=== PATIENT | female | born 1975 | race Caucasian/White ===

== ENCOUNTER 2019-02-06 05:51 | Inpatient (IN) | payer OTHER ==
[2019-02-06] MEDS ORDERED: CARBOPROST 250 MCG INJ IM ×2 (07:00→17:00)
[2019-02-06] MEDS ORDERED: METHYLERGONOVINE 0.2 MG INJ IM ×2 (07:00→17:00)
[2019-02-06] MEDS ORDERED: MISOPROSTOL 200 MCG TAB PR ×2 (07:00→17:00)
[2019-02-06] MEDS ORDERED: BUTORPHANOL 2 MG INJ IV (07:00)
[2019-02-06] MEDS ORDERED: IBUPROFEN 600 MG TAB PO (07:00)
[2019-02-06] MEDS ORDERED: LIDOCAINE 1% (MPF) 30 ML INJ INJ (07:00)
[2019-02-06] MEDS ORDERED: OXYTOCIN 30 UNITS/LR 500 ML IV ×4 (07:00→17:00)
[2019-02-06] MEDS: LACTATED RINGER'S 1,000 ML IV ×3 (07:30→09:51)
[2019-02-06] MEDS ORDERED: CLINDAMYCIN 900 MG (PMX) 50 ML IVPB ×2 (07:56→12:00)
[2019-02-06] MEDS: CLINDAMYCIN 900 MG (PMX) 50 ML IVPB (08:20)
[2019-02-06] MEDS ORDERED: FENTAnyl 2MCG/ML-ROPIV 0.2% 100 ML (08:58)
[2019-02-06] MEDS ORDERED: FENTAnyl 2MCG/ML-ROPIV 0.2% 100 ML BAG EPI (09:30)
[2019-02-06] MEDS ORDERED: NALOXONE (0.4 MG/ML) INJ IV ×2 (09:30→13:00)
[2019-02-06] MEDS ORDERED: TERBUTALINE 1 ML (11:49)
[2019-02-06] MEDS ORDERED: CEFAZOLIN 2 GM/50 ML (PMX) 50 ML IVPB (11:51)
[2019-02-06] MEDS ORDERED: ROPIVACAINE 0.5 % 30 ML VIAL (12:20)
[2019-02-06] MEDS ORDERED: OXYTOCIN 10 UNIT INJ (12:20)
[2019-02-06] MEDS ORDERED: DEXAMETHASONE 4 MG/ML 1 ML INJ (12:22)
[2019-02-06] MEDS ORDERED: KETOROLAC 30 MG INJ (12:22)
[2019-02-06] MEDS ORDERED: ONDANSETRON 4 MG INJ (12:22)
[2019-02-06] MEDS ORDERED: METOCLOPRAMIDE 10 MG INJ (12:22)
[2019-02-06] MEDS ORDERED: MEPERIDINE 100 MG INJ (12:31)
[2019-02-06] MEDS ORDERED: morphine SULFATE/PF (10 MG/10 ML) INJ (12:46)
[2019-02-06] MEDS ORDERED: PHENYLephrine (100 MCG/ML) 10ML SYG (12:48)
[2019-02-06] MEDS ORDERED: HETASTARCH 6% NACL 500 ML (12:57)
[2019-02-06] MEDS ORDERED: DIPHENHYDRAMINE 50 MG INJ IV (13:00)
[2019-02-06] MEDS ORDERED: HYDROmorphONE 0.5 MG/0.5 ML SYG IV ×2 (13:00)
[2019-02-06] MEDS ORDERED: HYDROCODONE/APAP (5/325) TAB PO (13:00)
[2019-02-06] MEDS ORDERED: ACETAMINOPHEN 500 MG TAB PO (13:00)
[2019-02-06] MEDS ORDERED: ONDANSETRON 4 MG INJ IV (13:00)
[2019-02-06] MEDS ORDERED: NALBUPHINE HCL (10 MG/1 ML) INJ IV (13:00)
[2019-02-06] MEDS ORDERED: morphine 2 MG INJ IV ×2 (13:00)
[2019-02-06] MEDS: DEXTROSE 5%-LR 1,000 ML IV (16:41)
[2019-02-06] MEDS ORDERED: LANOLIN HPA 1 PKT TOP (17:00)
[2019-02-06] MEDS ORDERED: METHYLERGONOVINE 0.2 MG TAB PO (17:00)
[2019-02-06] MEDS ORDERED: MAGNESIUM HYDROXIDE 30ML CUP PO (17:00)
[2019-02-06] MEDS: OXYTOCIN 30 UNITS/LR 500 ML IV (17:09)
[2019-02-06] MEDS: SENNA/DOCUSATE NA (8.6MG/50MG) TAB PO (21:00)
[2019-02-06] MEDS: IBUPROFEN 800 MG TAB PO (22:00)
[2019-02-07] MEDS: DEXTROSE 5%-LR 1,000 ML IV (00:41)
[2019-02-07] MEDS: IBUPROFEN 800 MG TAB PO (06:00)
[2019-02-07] MEDS: KETOROLAC 30 MG INJ IV (07:58)
[2019-02-07] MEDS: SENNA/DOCUSATE NA (8.6MG/50MG) TAB PO ×2 (10:26→20:49)
[2019-02-07] MEDS: ACETAMINOPHEN 500 MG TAB PO ×2 (10:46→17:56)
[2019-02-07] MEDS: ASCORBIC ACID 500 MG TAB PO ×2 (10:47→20:48)
[2019-02-07] MEDS: FERROUS SULFATE (EC) 325 MG TAB PO ×2 (10:47→20:49)
[2019-02-07] MEDS: DIPHTH/TET/ACEL PERTUSS (ADULT) 0.5 ML VIAL IM* (11:00)
[2019-02-07] MEDS: CELECOXIB 200 MG CAP PO ×2 (12:00→20:49)
[2019-02-07] MEDS ORDERED: HYDROCODONE/APAP (5/325) TAB GTB (14:00)
[2019-02-08] MEDS: ACETAMINOPHEN 500 MG TAB PO ×3 (02:03→17:12)
[2019-02-08] MEDS: FERROUS SULFATE (EC) 325 MG TAB PO ×2 (09:31→21:22)
[2019-02-08] MEDS: CELECOXIB 200 MG CAP PO (09:31)
[2019-02-08] MEDS: ASCORBIC ACID 500 MG TAB PO ×2 (09:31→21:22)
[2019-02-08] MEDS: SENNA/DOCUSATE NA (8.6MG/50MG) TAB PO ×2 (09:31→21:22)
[2019-02-08] MEDS: HYDROCODONE/APAP (5/325) TAB NGT (10:35)
[2019-02-08] MEDS: IBUPROFEN 600 MG TAB PO ×2 (14:04→17:13)
[2019-02-09] MEDS: IBUPROFEN 600 MG TAB PO ×3 (00:32→12:19)
[2019-02-09] MEDS: ACETAMINOPHEN 500 MG TAB PO ×2 (02:00→10:00)
[2019-02-09] MEDS: ASCORBIC ACID 500 MG TAB PO (08:43)
[2019-02-09] MEDS: FERROUS SULFATE (EC) 325 MG TAB PO (08:43)
[2019-02-09] MEDS: SENNA/DOCUSATE NA (8.6MG/50MG) TAB PO (08:43)
[2019-02-09] MEDS: HYDROCODONE/APAP (5/325) TAB NGT (08:46)
[2019-02-09] MEDS ORDERED: DIPHTH/TET/ACEL PERTUSS (ADULT) 0.5 ML VIAL IM* (09:00)
[2019-02-09] MEDS: MEASLES,MUMPS,RUBELLA VACCINE INJ SC* (09:29)
== END 2019-02-09 18:00 | disposition home or self-care (01) | DRG 784 ==
LOC: OBT 05:51 → L-D 05:52 → OBT 06:32 → L-D 06:32 → MS1 16:50
PROC: 10D00Z1 Extraction of Products of Conception, Low, Open Approach (ICD-10-PCS; principal; 2019-02-06 12:15)
PROC: 0UB70ZZ Excision of Bilateral Fallopian Tubes, Open Approach (ICD-10-PCS; 2019-02-06 12:15)
DX: O76 Abnormality in fetal heart rate and rhythm complicating labor and delivery (principal); D62 Acute posthemorrhagic anemia; O90.81 Anemia of the puerperium; Z3A.40 40 weeks gestation of pregnancy; Z37.0 Single live birth; Z30.2 Encounter for sterilization
CPT/HCPCS: 36415; 62322; 76815; 80053; 81001; 84560; 85025; 85610; 85730; 86592; 86850; 86900; 86901; 87086; 87340; 88302; 90715; 99464